=== PATIENT | male | born 1990 | race Caucasian/White ===

== ENCOUNTER 2020-08-07 01:56 | Emergency (ER) | payer MEDICAID ==
[~2020-08-07] VITALS: Ht 177.8 cm; Wt 72.7 kg
[2020-08-07 02:46] VITALS: BP 134/96
== END 2020-08-07 02:43 ==
LOC: EDBD 01:58 → ER 01:58
DX: S80.12XA Contusion of left lower leg, initial encounter (principal); F12.90 Cannabis use, unspecified, uncomplicated; X58.XXXA Exposure to other specified factors, initial encounter; Y93.89 Activity, other specified; Y92.89 Other specified places as the place of occurrence of the external cause; Y99.8 Other external cause status
CPT/HCPCS: 99283